=== PATIENT | male | born 1960 | race Caucasian/White ===

== ENCOUNTER 2024-01-01 08:33 | Day surgery (SDC) | payer OTHER ==
[2024-01-01] VITALS (17 sets, daily range): BP systolic 90–153; BP diastolic 50–87
[~2024-01-01] VITALS: Ht 185.4 cm; Wt 111.0 kg
[~2024-01-01 08:33] MED LIST: ASPI81CH PO; GABA300 PO; LOSARTAN-HCTZ1 EACH PO; MELO7.5 PO; OMEP20ER PO; SERT100 PO
[2024-01-01] MEDS ORDERED: Acetaminophen 500 MG Tab PO SCH ×2 (08:55→16:00)
[2024-01-01] MEDS ORDERED: Lactated Ringer's 1,000 ML IV SCH ×2 (08:55→10:55)
[2024-01-01] MEDS ORDERED: CeFAZolin Sodium 2,000 MG in NS 100 ML IV SCH ×2 (08:55→18:30)
[2024-01-01] MEDS ORDERED: Chlorhexidine Mouth Care 15 ML UDC MT SCH (08:55)
[2024-01-01] MEDS ORDERED: OxyCODONE HCL 10 MG TABCR PO SCH (08:55)
[2024-01-01] MEDS ORDERED: Tranexamic Acid 100 ML IV SCH (08:55)
[2024-01-01] MEDS ORDERED: Ropivacaine 0.5% HCl/Pf 123.125 MG,EPINEPHrine HCL 0.25 MG,Ketorolac Tromethamine 15 MG... INFIL SCH (08:55)
--- NOTE | 2024-01-01 09:53 | NUR ---
History, Chart, Medications and Allergies reviewed before start of procedure. Pre-Op teaching done. Pt verbalizes understanding. GLASSES REMOVED AND PLACED IN PACU. BELONGINGS PLACED UNDER GURN INCLUDING PT'S BACKPACK AND CANE. PT AMBULATORY IN DAY SURGERY WITH CANE.
[2024-01-01] MEDS ORDERED: FentaNYL Citrate 50 MCG/ML 2 ML Injection ONE (09:58)
[2024-01-01] MEDS ORDERED: propofoL 60 ML IV ONE ×2 (09:58→11:34)
[2024-01-01] MEDS ORDERED: Midazolam HCl 1MG / ML 2ML Vial ONE (10:39)
[2024-01-01] MEDS ORDERED: Promethazine HCl 25 MG Tab PO PRN (10:50)
[2024-01-01] MEDS ORDERED: Bisacodyl 10 MG Supp PR PRN (10:50)
[2024-01-01] MEDS ORDERED: HYDROmorphone HCl/Pf 1MG SYR IV PRN (10:50)
[2024-01-01] MEDS ORDERED: DiphenhydrAMINE HCL 25 MG Cap PO PRN (10:50)
[2024-01-01] MEDS ORDERED: ePHEDrine Sulfate 50 MG/ML 1ML Injection ONE (10:51)
[2024-01-01] MEDS ORDERED: Magnesium Hydroxide Conc 10 ML UDC PO PRN (10:55)
[2024-01-01] MEDS ORDERED: OxyCODONE HCL 5 MG TAB PO PRN ×2 (10:55)
[2024-01-01] MEDS ORDERED: Ondansetron HCl 2 MG / ML 2ML Vial IV PRN (10:55)
[2024-01-01] MEDS ORDERED: Metoclopramide HCl 5MG / ML 2ML Vial IV PRN (10:55)
[2024-01-01] MEDS ORDERED: Dexamethasone Sod Phos 10 MG/ML 1ML VIAL ONE (11:20)
[2024-01-01] MEDS ORDERED: Ondansetron HCl 2 MG / ML 2ML Vial ONE (11:20)
--- NOTE | 2024-01-01 11:25 | NUR ---
01/01/24 1125 Petros,Kiersten SPINAL BLOCK COMPLETED BY UPON ENTRY TO OR.
[2024-01-01] MEDS ORDERED: propofoL 40 ML IV ONE (12:06)
[2024-01-01] MEDS ORDERED: Ketorolac Tromethamine 15mg Vial IV SCH (18:00)
--- NOTE | 2024-01-01 19:24 | NUR ---
SHIFT SUMMARY POD0 R TKA, A/OX4, VSS, TOLERATING PO, PAIN WELL MANAGED, WORKED WITH THERAPY, POST OP VOID, PAINFUL BUT ABLE TO TOLERATE. NO ACUTE EVENTS THIS SHIFT, CALL LIGHT IN REACH.
[2024-01-01] MEDS ORDERED: Gabapentin 300 MG Cap PO SCH (21:00)
[2024-01-01] MEDS ORDERED: Docusate Sodium 100 MG Cap PO SCH (21:00)
[2024-01-02 04:27] LABS: BASOPHILS ABSOLUTE AUTO 0.02 K/mm3 (0.00-0.23); BASOPHILS PERCENT AUTO 0 % (0-2); EOSINOPHILS ABSOLUTE AUTO 0.01 K/mm3 (0.00-0.68); EOSINOPHILS PERCENT AUTO 0 % (0-6); Hematocrit 37.1 % (37.0-53.0); Hemoglobin 12.8 g/dL (13.5-17.5); IMMATURE GRAN PERCENT AUTO 1 % (0-1); LYMPHOCYTES ABSOLUTE AUTO 1.47 K/mm3 (0.84-5.20); LYMPHOCYTES PERCENT AUTO 9 % (21-46); MONOCYTES ABSOLUTE AUTO 1.14 K/mm3 (0.16-1.47); MONOCYTES PERCENT AUTO 7 % (4-13); Mean Corpuscular HGB 30.3 pg (26.0-34.0); Mean Corpuscular HGB Conc 34.5 g/dL (31.5-36.5); Mean Corpuscular Volume 88 fL (80-100); Mean Platelet Volume 9.8 fL (9.1-12.4); NEUTROPHILS ABSOLUTE AUTO 14.12 K/mm3 (1.96-9.15); NEUTROPHILS PERCENT AUTO 84 % (41-73); Platelet Count 245 K/mm3 (150-400); RDW Coefficient Variation 12.9 % (11.7-14.2); RDW Standard Deviation 41.7 fL (35.1-46.3); Red Blood Cell Count 4.22 M/mm3 (4.30-5.90); White Blood Cell Count 16.86 K/mm3 (4.00-11.30)
--- NOTE | 2024-01-02 04:58 | NUR ---
SUMMARY- PT PAIN MANAGED WELL. PT HAS BEEN UP TO VOID AND AMBULATING WELL WITH GB AND FWW. PT HAS BEEN RESTING COMFORTABLY. NO ISSUES OR CONCERNS NOTED. CALL LIGHT IN REACH.
[2024-01-02 05:00] LABS: Bun/Creatinine Ratio 21.2 (12.0-20.0); Calcium, Blood 8.7 mg/dL (8.5-10.1); Creatinine, Blood 0.76 mg/dL (0.60-1.20); Magnesium, Blood 1.9 mg/dL (1.6-2.4); Potassium, Blood 4.2 mmol/L (3.5-5.5)
[2024-01-02] MEDS ORDERED: Omeprazole 20 MG CapCR PO SCH (06:00)
[2024-01-02 06:03] VITALS: BP 138/73
[2024-01-02] MEDS ORDERED: ACET500 PO (07:07)
[2024-01-02] MEDS ORDERED: OXYC5 PO (07:08)
[2024-01-02] MEDS ORDERED: XARELTO20 MG PO (07:09)
[2024-01-02 07:23] VITALS: BP 111/66
[2024-01-02] MEDS ORDERED: Losartan/HCTZ 50-12.5 TAB PO SCH (09:00)
[2024-01-02] MEDS ORDERED: Sertraline HCl 100 MG Tab PO SCH (09:00)
--- NOTE | 2024-01-02 10:19 | NUR ---
SHIFT SUMMARY POD1 R TKA, A/OX4, VSS, TOLERATING PO, PIN MANAGED PER KOURTNEY MARTINEZ X2 RL C/D/I, WORKED WELL WITH THERAPY, VOIDING INDEPENDENTLY. DISCUSSED DICHARGE INFORMATION WITH HIM AND HI INCLUDING HOME CARE, MEDICATIONS, AND FOLLOW UP APPOINTMENTS. NO QUESTIONS AT THIS TIME, ESCORTED OUT VIA WC TO PRIVATE AUTO TO GO HOME.
[2024-01-02] MEDS ORDERED: Rivaroxaban 10 MG Tab PO SCH (12:00)
== END 2024-01-02 10:13 | disposition home or self-care (01) ==
LOC: ORSCMMR 08:33 → ORD 10:30 → ORSCMMR 10:30 → SURS 13:46 → ORD 15:30 → ORSCMMR 01-02 10:13 → SURS 01-02 10:13
PROVIDERS: Orthopaedic Surgery
PROC: 0SRC0JA Replacement of Right Knee Joint with Synthetic Substitute, Uncemented, Open Approach (ICD-10-PCS; principal; 2024-01-01 10:30)
PROC: 8E0Y0CZ Robotic Assisted Procedure of Lower Extremity, Open Approach (ICD-10-PCS; principal; 2024-01-01 10:30)
DX: M17.11 Unilateral primary osteoarthritis, right knee (principal); F41.9 Anxiety disorder, unspecified; F32.A Depression, unspecified; I10 Essential (primary) hypertension; K21.9 Gastro-esophageal reflux disease without esophagitis; E66.9 Obesity, unspecified; Z68.32 Body mass index [BMI] 32.0-32.9, adult; Z86.718 Personal history of other venous thrombosis and embolism; Z79.01 Long term (current) use of anticoagulants; Z79.899 Other long term (current) drug therapy; Z87.891 Personal history of nicotine dependence
CPT/HCPCS: 36415; 73560-RT; 80048; 83735; 85025; 97110; 97162; 97530; A9270; C1713; C1776; J0171; J0690; J0735; J1100; J1170; J1885; J2250; J2405; J2704; J2795; J3010; J7120